=== PATIENT | male | born 1980 | race Caucasian/White ===

== ENCOUNTER 2023-08-31 01:43 | Day surgery (SDC) | payer OTHER, SELFPAY ==
[2023-08-31] VITALS (30 sets, daily range): BP systolic 101–175; BP diastolic 54–111; PULSE 60–85; RESP 16–18; TEMP 36.4–36.9; O2SAT 93–98; BMI 31.9
--- NOTE | 2023-08-31 02:26 | ED_ITS ---
HPI - General Adult General Chief complaint: Fall/Minor Trauma Stated complaint: Fell off a ladder on Friday, backpain Time Seen by Provider: 08/31/23 02:25 History of Present Illness HPI narrative: friday AM around 09 was on ladder in basement, up a couple steps - est 2 feet and ladder slipped out, pt fell and abdomen landed on window sill. pt states no other injuries but tonight started to worsen with onset of nausea . pt states pain from R upper abd into R flank region. 10/17. denies any urinary or BM concerns - states all normal. took ibu/tylenol mix medication around 2100. 43-year-old man presenting to the emergency department with concern of upper abdominal pain. Seems to go around his back somewhat. More so on the right. Yesterday was on a ladder and the ladder slipped and he dragged his abdomen and lower chest than across the window sill. Tonight started to have increasing pain along with nausea. This was in the upper right abdomen as noted. He has not had any fever. He describes this as a deep pain. Somewhat cramping; just hurts. Tried some acetaminophen and ibuprofen combination medication without relief. With later review he does admit that over the last week often after eating he has just been sensitive in this area. Mom apparently with gallbladder disease. Related Data Home Medications ?Medication ?Instructions ?Recorded ?Confirmed No Known Home Medications 08/31/23 08/31/23 Allergies Allergy/AdvReac Type Severity Reaction Status Date / Time No Known Drug Allergies Allergy Verified 08/31/23 01:56 Review of Systems Status of ROS: Reports: 6 or more systems reviewed and unremarkable except as noted in History and below [facility] Social History Smoking Status: Never smoker Do you use any of these nicotine containing products: None Non-prescribed substance use: denies use Exam Narrative: Exam Narrative: Pleasant. NAD. Right hand at upper abdomen. Skin is warm and dry. There is faint erythema in the area as mentioned but is not a rash. More as if he has been worrying this area. No actual flank pain. Normal bowel sounds. Abdomen is soft. Is somewhat difficult to reproduce his pain. Mild discomfort underneath the right ribs and at the rib edge. Negative Davis's. Lungs are clear. Heart in regular rate and rhythm. No other evidence of injury on his person. Back is without tenderness. Const: Vital Signs, click to edit/add: Vital Signs - 24 hr 08/31/23 01:53 08/31/23 03:51 08/31/23 04:02 Temperature 97.9 F Pulse Rate 76 Pulse Rate [Pulse Oximeter] 74 76 Respiratory Rate 16 16 16 Blood Pressure 171/101 H Blood Pressure [Le ft Upper Arm] 173/101 H 175/111 H Pulse Oximetry 97 97 96 Oxygen Delivery Me thod Room Air Room Air 08/31/23 05:00 08/31/23 05:02 08/31/23 05:03 Temperature Pulse Rate 70 68 80 Pulse Rate [Pulse Oximeter] Respiratory Rate 16 Blood Pressure 170/103 H Blood Pressure [Le ft Upper Arm] Pulse Oximetry 96 96 95 Oxygen Delivery Me thod 08/31/23 05:16 08/31/23 05:30 08/31/23 05:45 Temperature Pulse Rate 77 66 63 Pulse Rate [Pulse Oximeter] Respiratory Rate Blood Pressure Blood Pressure [Le ft Upper Arm] Pulse Oximetry 97 94 93 Oxygen Delivery Me thod 08/31/23 06:00 08/31/23 06:15 08/31/23 06:30 Temperature Pulse Rate 61 69 66 Pulse Rate [Pulse Oximeter] Respiratory Rate 16 Blood Pressure Blood Pressure [Le ft Upper Arm] Pulse Oximetry 94 95 95 Oxygen Delivery Me thod 08/31/23 07:10 Temperature Pulse Rate Pulse Rate [Pulse Oximeter] 69 Respiratory Rate 18 Blood Pressure Blood Pressure [Le ft Upper Arm] 144/88 H Pulse Oximetry 97 Oxygen Delivery Me thod Room Air Documenting provider has reviewed patient's vital signs: yes Course Vital Signs Vital signs: Initial Vital Signs Temperature 97.9 F 08/31/23 01:53 Temperature Source Temporal Artery Scan 08/31/23 01:53 Pulse Rate 74 08/31/23 01:53 Respiratory Rate 16 08/31/23 01:53 Blood Pressure 173/101 H 08/31/23 01:53 Blood Pressure Mean 125 H 08/31/23 01:53 Blood Pressure Position Sitting 08/31/23 01:53 Pulse Oximetry 97 08/31/23 01:53 Oxygen Delivery Method Room Air 08/31/23 01:53 Vital Signs Temperature 97.9 F 08/31/23 01:53 Pulse Rate 74 08/31/23 01:53 Respiratory Rate 16 08/31/23 01:53 Blood Pressure 173/101 H 08/31/23 01:53 Pulse Oximetry 97 08/31/23 01:53 Oxygen Delivery Method Room Air 08/31/23 01:53 Temperature 97.9 F 08/31/23 01:53 Pulse Rate 69 08/31/23 07:10 Respiratory Rate 18 08/31/23 07:10 Blood Pressure 144/88 H 08/31/23 07:10 Pulse Oximetry 97 08/31/23 07:10 Oxygen Delivery Method Room Air 08/31/23 07:10 Medications Administered Medications: Discontinued Medications Generic Name Dose Route Start Last Admin Trade Name Freq PRN Reason Stop Dose Admin Hydromorphone HCl 0.5 mg 08/31/23 05:22 08/31/23 05:24 Hydromorphone 0.5 Mg/0.5 Ml Inj IVP 08/31/23 05:23 0.5 mg ONCE ONE Administration Hydromorphone HCl 0.5 mg 08/31/23 07:56 08/31/23 08:02 Hydromorphone 0.5 Mg/0.5 Ml Inj IVP 08/31/23 07:57 0.5 mg ONCE ONE Administration Sodium Chloride 1,000 mls @ 1,000 mls/hr 08/31/23 02:32 08/31/23 04:10 0.9 % Sodium Chloride 1000 Ml IV 08/31/23 03:31 Infused .Q1H ONE Infusion Ketorolac Tromethamine 30 mg 08/31/23 03:28 08/31/23 03:56 Ketorolac 30 Mg/Ml Inj IVP 08/31/23 03:29 30 mg ONCE ONE Administration Morphine Sulfate 4 mg 08/31/23 03:32 08/31/23 03:56 Morphine 4 Mg/Ml Inj IVP 08/31/23 03:33 4 mg ONCE ONE Administration Ondansetron HCl 4 mg 08/31/23 03:28 08/31/23 03:56 Ondansetron 2 Mg/Ml Inj IVP 08/31/23 03:29 4 mg ONCE ONE Administration Medical Decision Making MDM Narrative Medical decision making narrative: I would be reassured if I could more clearly reproduces pain that this might be musculoskeletal. Not a particularly intense mechanism of injury in 36 hours ago or so for intra-abdominal/visceral injury but perhaps needs to be evaluated in this regard. Unusual delay to symptom escalation if related to trauma. Does not seem to have bowel issues otherwise at this time though does later note that has over the last week or so been experiencing regularly loose stools. Will place IV. IV contrasted scan looking for other evidence of injury. Does not initially want any medication for pain or nausea but later thinks better of this. Given ketorolac and Zofran and little morphine. Normal saline as well. CT scan of abdomen and pelvis by my read does show somewhat dilated gallbladder. There is some haziness suggesting inflammatory changes around the gallbladder and possibly some debris within the gallbladder. Radiology over-read as below Technique: CT through the abdomen and pelvis following 116 mL Isovue 370 IV contrast Comparison: None Findings: Lower chest: No acute abnormality appreciated. Hepatobiliary: Mild dilation of the gallbladder lumen with wall thickening and adjacent stranding and fluid. Spleen: Unremarkable. Pancreas: No acute abnormality appreciated. Adrenal glands: No acute abnormality appreciated. Kidneys: No significant parenchymal abnormality appreciated. No visualized calculi. No hydronephrosis. Bowel: No obstruction. No focal perienteric or pericolonic stranding is appreciated. The appendix is visualized and appears unremarkable. Vascular: No acute abnormality appreciated. Lymph nodes: No gross lymphadenopathy. Peritoneum: No free air. No free fluid. : No acute abnormality appreciated. Soft tissues: No acute abnormality appreciated. Bones: No acute fracture. No lytic or blastic lesion. Impression: Findings suspicious for acute cholecystitis. The pain returns again is ordered for some Dilaudid. At this time of night I would like to defer calling in the inspecting and testing lead hand. I think we can wait till morning to reassess. Labs have finalized now and he is without elevated transaminases and with normal white count. Veterinary Receptionist arrives and they do note some gallbladder wall thickening and sludge and a 2.4 cm stone in the gallbladder neck in maximal dimension TECHNIQUE: Ultrasound abdomen limited. Sonographic images gallbladder and biliary tree were obtained using miller-scale and color Doppler images. COMPARISON: CT abdomen and pelvis 08/31/2023 FINDINGS: Ultrasound was performed of the gallbladder. There is borderline distention of the gallbladder with a gallstone at the gallbladder neck. There is gallbladder wall thickening measuring up to 6 mm. No pericholecystic fluid is visualized. The common bile duct is not visualized due to overlying bowel gas IMPRESSION: Cholelithiasis with borderline gallbladder distention and gallbladder wall thickening, findings suggestive of acute cholecystitis. Following ultrasound does require re-dosing of pain medication as pain is escalating again. Reexamination of the abdomen later, does appear generally more tender but still with absent Davis's. I did review this case with General surgery on-call. They are anticipating taking Mr. Brown to surgery yet this morning. Lab Data Lab results reviewed: Yes I reviewed the patient's lab results Labs: Lab Results 08/31/23 08/31/23 08/31/23 Range/Units 02:27 03:20 07:25 WBC 10.99 (4.50-11.00) K/uL RBC 5.60 (4.30-5.90) m/uL Hgb 15.8 (13.5-17.5) gm/dL Hct 47.3 (37.0-53.0) % MCV 85 (80-100) fL MCH 28 (26-34) pg MCHC 33 (32-36) gm/dL RDW Coeff of Mady 13.3 (11.5-15.5) % Plt Count 204 (140-440) K/uL Neut % (Auto) 79.3 H (42.0-72.0) % Lymph % (Auto) 13.7 L (20-44) % [place] % (Auto) 5.2 (0.0-11.0) % Eos % (Auto) 1.4 (0.0-7.0) % Baso % (Auto) 0.3 (0.0-3.0) % Neut # (Auto) 8.70 H (1.7-7.0) K/uL Lymph # (Auto) 1.50 (0.90-2.90) K/uL [place] # (Auto) 0.60 (0.00-0.90) K/UL Eos # (Auto) 0.15 (0.00-0.50) K/uL Baso # (Auto) 0.03 (0.00-0.30) K/uL Abs Immat Gran (auto) 0.01 (0.00-0.30) K/uL Imm/Tot Granulo (auto) 0.1 % Sodium 138 (135-149) mmol/L Potassium 3.6 (3.6-5.1) mmol/L Chloride 103 (96-114) mmol/L Carbon Dioxide 29 (20-32) mmol/L Anion Gap 6 L (7-15) mEq/L BUN 15 (5-24) mg/dL Creatinine 0.9 (0.5-1.5) mg/dL Estimated Creat Clear 113.77 Estimated GFR 107 ml/min Glucose 110 (60-115) mg/dL Calcium 8.9 (8.4-10.6) mg/dL Total Bilirubin 0.7 (0.1-1.5) mg/dL Direct Bilirubin 0.3 (0.0-0.5) mg/dL AST 28 (12-35) U/L ALT 33 (4-50) U/L Alkaline Phosphatase 45 (40-150) U/L Total Protein 7.1 (6.0-8.3) g/dL Albumin 4.4 (3.3-5.0) g/dL Urine Color Yellow (Yellow) Urine Appearance Clear (Clear) Urine pH 7.5 (5.0-8.5) Ur Specific [place] 1.015 (1.000-1.030) Urine Protein Negative (Negative) Urine Glucose (UA) Negative (Negative) Urine Ketones Trace A (Negative) Urine Blood Negative (Negative) Urine Nitrite Negative (Negative) Urine Bilirubin Negative (Negative) Urine Urobilinogen 0.2 (0.2-1.0) Ur Leukocyte Esterase Negative (Negative) Urine RBC 0-2 (0-2) Urine WBC 0-2 (0-5) Urine WBC Clumps None (None) Ur Squamous Epith Cells None (None-Few) Urine Bacteria None (None) Lab Acknowledgement Test Added Discharge Plan Discharge Clinical Impression: Acute cholecystitis Patient Disposition: XFER to OR Condition: Stable Follow Up/Referrals: Agapito Ignacio MD [Referring] -
--- NOTE | 2023-08-31 02:33 | CRLHL7_ITS ---
For Patients: As a result of the Century Cures Act, medical imaging exams and procedure reports are released immediately into your electronic medical record. You may view this report before your referring provider. If you have questions, please contact your health care provider. Indication: Right upper quadrant pain after trauma Technique: CT through the abdomen and pelvis following 116 mL Isovue 370 IV contrast Comparison: None Findings: Lower chest: No acute abnormality appreciated. Hepatobiliary: Mild dilation of the gallbladder lumen with wall thickening and adjacent stranding and fluid. Spleen: Unremarkable. Pancreas: No acute abnormality appreciated. Adrenal glands: No acute abnormality appreciated. Kidneys: No significant parenchymal abnormality appreciated. No visualized calculi. No hydronephrosis. Bowel: No obstruction. No focal perienteric or pericolonic stranding is appreciated. The appendix is visualized and appears unremarkable. Vascular: No acute abnormality appreciated. Lymph nodes: No gross lymphadenopathy. Peritoneum: No free air. No free fluid. : No acute abnormality appreciated. Soft tissues: No acute abnormality appreciated. Bones: No acute fracture. No lytic or blastic lesion. Impression: Findings suspicious for acute cholecystitis. Please note that all CT scans at this facility use dose modulation, iterative reconstruction, and/or weight-based dosing when appropriate to reduce radiation dose to as low as reasonably achievable. Dictated by Slim De Santiago MD @ 08/31/2023 3:16:10 AM (Electronically Signed)
[2023-08-31] MEDS: 0.9 % SODIUM CHLORIDE 1000 ml 1,000 ML IV (02:43)
[2023-08-31 03:05] LABS: Hemoglobin* 15.8 gm/dL (13.5-17.5)
[2023-08-31 03:28] LABS: Albumin* 4.4 g/dL (3.3-5.0)
[2023-08-31 03:29] LABS: Chloride* 103 mmol/L (96-114); Potassium* 3.6 mmol/L (3.6-5.1); Sodium* 138 mmol/L (135-149)
[2023-08-31 03:31] LABS: Anion Gap 6 mEq/L (7-15); Bilirubin Direct* 0.3 mg/dL (0.0-0.5); Bilirubin Total* 0.7 mg/dL (0.1-1.5); Carbon Dioxide* 29 mmol/L (20-32); Creatinine* 0.9 mg/dL (0.5-1.5); Est. Creatinine Clearance* 113.77; Estimated Glomerular Filt Rate 107 ml/min
[2023-08-31 03:32] LABS: Alanine Aminotransferase* 33 U/L (4-50); Alkaline Phosphatase* 45 U/L (40-150); Aspartate Amino Transferase* 28 U/L (12-35); Blood Urea Nitrogen* 15 mg/dL (5-24); Calcium* 8.9 mg/dL (8.4-10.6); Glucose* 110 mg/dL (60-115); Total Protein* 7.1 g/dL (6.0-8.3)
[2023-08-31 03:36] LABS: Appearance Urine Clear (Clear); Bilirubin Urine Negative (Negative); Blood Urine Negative (Negative); Color Urine Yellow (Yellow); Glucose Urine Negative (Negative); Ketones Urine Trace (Negative); Leukocyte Esterase Urine Negative (Negative); Nitrite Urine Negative (Negative); Protein Urine Negative (Negative); Specific Gravity Urine 1.015 (1.000-1.030); Urobilinogen Urine 0.2 (0.2-1.0); pH Urine 7.5 (5.0-8.5)
[2023-08-31 03:52] LABS: RBC Urine 0-2 (0-2); WBC Urine 0-2 (0-5)
[2023-08-31] MEDS: KETOROLAC 30 MG/ML inj IVP (03:56)
[2023-08-31] MEDS: ONDANSETRON 2 MG/ML inj 4 MG IVP (03:56)
[2023-08-31] MEDS: MORPHINE 4 MG/ML INJ IVP (03:56)
[2023-08-31] MEDS: HYDROmorphone 0.5 mg/0.5 ml inj IVP ×2 (05:24→08:02)
--- NOTE | 2023-08-31 06:55 | CRLHL7_ITS ---
For Patients: As a result of the Century Cures Act, medical imaging exams and procedure reports are released immediately into your electronic medical record. You may view this report before your referring provider. If you have questions, please contact your health care provider. INDICATION: Right upper quadrant pain, CT demonstrating possible cholecystitis. TECHNIQUE: Ultrasound abdomen limited. Sonographic images gallbladder and biliary tree were obtained using miller-scale and color Doppler images. COMPARISON: CT abdomen and pelvis 08/31/2023 FINDINGS: Ultrasound was performed of the gallbladder. There is borderline distention of the gallbladder with a gallstone at the gallbladder neck. There is gallbladder wall thickening measuring up to 6 mm. No pericholecystic fluid is visualized. The common bile duct is not visualized due to overlying bowel gas IMPRESSION: Cholelithiasis with borderline gallbladder distention and gallbladder wall thickening, findings suggestive of acute cholecystitis. Dictated by Roselia Morgan MD @ 08/31/2023 8:30:24 AM Dictated by: Roselia Morgan MD @ 08/31/2023 08:30:48 (Electronically Signed)
[2023-08-31 07:40] LABS: Basophils Absolute Auto 0.03 K/uL (0.00-0.30); Basophils Percent Auto 0.3 % (0.0-3.0); Eosinophils Absolute Auto 0.15 K/uL (0.00-0.50); Eosinophils Percent Auto 1.4 % (0.0-7.0); Hematocrit 47.3 % (37.0-53.0); Immature Granulocytes Abs Auto 0.01 K/uL (0.00-0.30); Immature Granulocytes Pct Auto 0.1 %; Lymphocytes Percent Auto 13.7 % (20-44); Mean Corpuscular HGB Conc 33 gm/dL (32-36); Mean Corpuscular Hemoglobin 28 pg (26-34); Mean Corpuscular Volume 85 fL (80-100); Monocytes Percent Auto 5.2 % (0.0-11.0); Neutrophils Percent Auto 79.3 % (42.0-72.0); Platelet Count* 204 K/uL (140-440); RDW Coefficient of Variation % 13.3 % (11.5-15.5); White Blood Count* 10.99 K/uL (4.50-11.00)
[2023-08-31 07:47] LABS: Slide Review Reflex No
--- NOTE | 2023-08-31 10:11 | ED.NURSE ---
Patient to OR via PLACEMENT COORDINATOR (Marcelina) via cot.
[2023-08-31] MEDS: LACTATED RINGERS 1000 ML 1,000 ML 100 ML IV (10:13)
--- NOTE | 2023-08-31 10:17 | P.GSHP_ITS ---
History of Present Illness History of Present Illness Date Seen: 08/31/23 Chief complaint: Fell off a ladder on Friday, backpain Narrative: Alvin Busby is a 43 year old male who presented with right upper quadrant abdominal pain. The pain started yesterday afternoon. It progressively got worse throughout the day. By that evening he was 10/10 in pain and he came to the emergency department. He has never had pain like this before. The pain radiates to his back. Initially he thought that it was related to a fall he had on Friday, although he denies having any pain in his abdomen or on his side after the fall or Friday morning. He has been having diarrhea for the last 4 weeks. Last night he had some nausea and vomiting. He last ate yesterday at 4:00 p.m.. He had some sweet and sour soup with beef and rice. He has never had abdominal surgery before. He is otherwise healthy. He works as a crm dynamics developer. Review of Systems Status of ROS: Reports: 10 or more systems reviewed and unremarkable except as noted in History and below [facility] Social History Smoking Status: Never smoker Do you use any of these nicotine containing products: None Non-prescribed substance use: denies use Meds Home Medications and Allergies Home Medications ?Medication ?Instructions ?Recorded ?Confirmed ?Type No Known Home Medications 08/31/23 08/31/23 History Allergies Allergy/AdvReac Type Severity Reaction Status Date / Time No Known Drug Allergies Allergy Verified 08/31/23 01:56 Exam Narrative: Exam Narrative: General: Alert and oriented, no acute distress Respiratory: Clear breath sounds bilaterally, maintained on room air CV: Well perfused Abdomen: Soft, tender to palpation right upper quadrant with some guarding. Chest: No chest wall tenderness. No rib tenderness. No bruising of the ribs noticed. Const: Vital Signs, click to edit/add: Vital Signs - 24 hr 08/31/23 01:53 08/31/23 03:51 08/31/23 04:02 Temperature 97.9 F Pulse Rate 76 Pulse Rate [Pulse Oximeter] 74 76 Respiratory Rate 16 16 16 Blood Pressure 171/101 H Blood Pressure [Le ft Upper Arm] 173/101 H 175/111 H Pulse Oximetry 97 97 96 Oxygen Delivery Me thod Room Air Room Air 08/31/23 05:00 08/31/23 05:02 08/31/23 05:03 Temperature Pulse Rate 70 68 80 Pulse Rate [Pulse Oximeter] Respiratory Rate 16 Blood Pressure 170/103 H Blood Pressure [Le ft Upper Arm] Pulse Oximetry 96 96 95 Oxygen Delivery Me thod 08/31/23 05:16 08/31/23 05:30 08/31/23 05:45 Temperature Pulse Rate 77 66 63 Pulse Rate [Pulse Oximeter] Respiratory Rate Blood Pressure Blood Pressure [Le ft Upper Arm] Pulse Oximetry 97 94 93 Oxygen Delivery Me thod 08/31/23 06:00 08/31/23 06:15 08/31/23 06:30 Temperature Pulse Rate 61 69 66 Pulse Rate [Pulse Oximeter] Respiratory Rate 16 Blood Pressure Blood Pressure [Le ft Upper Arm] Pulse Oximetry 94 95 95 Oxygen Delivery Az thod 08/31/23 07:10 08/31/23 09:15 Temperature 97.9 F Pulse Rate Pulse Rate [Pulse Oximeter] 69 77 Respiratory Rate 18 18 Blood Pressure Blood Pressure [Le ft Upper Arm] 144/88 H 150/96 H Pulse Oximetry 97 97 Oxygen Delivery Az thod Room Air Room Air Results Results Labs: No leukocytosis, there is a left shift. LFTs within normal limits. Abdomen CT scan report/results: report reviewed and image reviewed CT scan - chest: report reviewed and image reviewed Abdominal ultrasound report/results: report reviewed and image reviewed Progress Note:A&P Assessment and plan (1) Acute cholecystitis: Status: Acute Assessment and Plan: Patient is a 43-year-old male who presented to the emergency department with right upper quadrant abdominal pain radiating to his back. Initially, was thought to be secondary to trauma. Clinical workup and history is more consistent with acute cholecystitis. LFTs are within normal limits, making choledocholithiasis less likely. CT scan and ultrasound imaging reviewed. There is evidence of a large gallstone stuck within the neck of the gallbladder and gallbladder wall thickening. I had a detailed conversation with the patient regarding the diagnosis of acute cholecystitis. We discussed the treatment options including observation with diet modification and laparoscopic cholecystectomy. We discussed the risks of surgery (including but not limited to) the risks of bleeding, infection, injury to other structures in the abdomen including bile duct injury, bile leak and conversion to an open operation. We discussed the possibility that the patient's pain not improve with surgery. We discussed the possibility of permanent post-operative diarrhea that may require medical management. Additionally, the conceivably of complications requiring additional surgery or further hospitalization were also discussed including the risks of [place], respiratory failure, stroke and blood clots. The patient voiced an understan ding of our conversation, had the opportunity to ask questions, agreed to accept the risks of surgery and asked that we proceed with surgery. Plan OR for laparoscopic cholecystectomy.
[2023-08-31] MEDS: PIPERACILLIN/TAZOBACTAM 3.375 GM INJ IVPB (10:21)
[2023-08-31] MEDS: BUPIVACAINE 0.5% 30 ML INJECTION (10:48)
--- NOTE | 2023-08-31 12:02 | PM.GSPRC ---
Operative Note Date of procedure: 08/31/23 Pre-op diagnosis: Acute cholecystitis Post-op diagnosis: Same Type of Procedure: Laparoscopic cholecystectomy Indications: Patient is a 43-year-old male who presented to the emergency department with clinical history and workup consistent for acute cholecystitis. Risks and benefits of operative intervention were discussed at length with the patient. Risks included but was not limited to: Bleeding, infection, risk of damage to surrounding structures, possible need for additional procedures, possible need to convert to an open operation and postoperative complications such as pneumonia, pulmonary emboli or [place]. All questions and concerns were addressed with the patient agreeing to proceed. Procedure Description: After discussing the risks and benefits of the procedure, the patient signed informed consent.? The operative site was marked and the patient was brought to the operating room and placed on the operating table in supine position.? Care was taken to pad the patient's pressure points.?? The patient was then intubated by anesthesia.?? The operative site was then prepped and draped in the usual sterile fashion.? A time-out was then performed. Entrance to the abdomen was gained via a 5 mm Visiport in the left upper quadrant. The abdomen was insufflated and briefly surveyed for signs of injury. There was none. 11 mm umbilical port was placed as well as 2 working ports along the right costal margin. Patient was then placed in reverse Trendelenburg position with the right side up. The gallbladder was distended, edematous and difficult to grasp. A laparoscopic needle was used to decompress the gallbladder with removal of approximately 60 mL clear fluid, consistent with hydrops of the gallbladder. The fundus was grasped and retracted cephalad. A small amount of dissection was needed to free omental adhesions from the gallbladder. The infundibulum was grasped. A combination of hook cautery and blunt dissection was used to carefully dissect out the cystic duct and artery until they could clearly be seen entering the gallbladder without any intervening structures. The gallbladder was dissected off the cystic plate to achieve the critical view. The cystic artery was identified with evidence of a distal bifurcation. Additional clips were placed on the branch, before it was transected. The cystic duct was identified with 2 clips proximally and 1 clip distally and transected with the scissors. The gallbladder was then taken off of the liver bed and removed from the abdomen using an Endo-Catch bag. The gallbladder bed was surveyed for hemostasis, with any bleeding controlled with cautery. A small amount of bile which had spilled was suctioned from the abdomen. The ports were then removed under direct vision. The umbilical port fascia was closed with 0 Vicryl via a [id number] stitch. The skin was closed with absorbable subcuticular suture. Sterile dressings were then applied. Instrument sponge and needle counts were correct at the end of the case. The patient was then woken and transferred to the PACU in stable condition. Findings: Hydrops of the gallbladder. Anesthesia: GETA Surgeon: Nieves Champion MD Estimated blood loss (mL): 5 Specimen: Gallbladder Condition: stable Disposition: PACU
--- NOTE | 2023-08-31 12:22 | P.ANES_ITS ---
Anesthesia Charges Start Date/Time Anesthesia Start Date: 08/31/23 Anesthesia Start Time: 10:13 Stop Date/Time Anesthesia Stop Date: 08/31/23 Anesthesia Stop Time: 12:14 Summary Emergency: MANUFACTURING ACCOUNTANT
--- NOTE | 2023-08-31 12:30 | SUR.PHASEI ---
Patient meets Anesthesia PACU discharge criteria
[2023-08-31] MEDS: HYDROCODONE-ACETAMIN 5-325 MG 1 TAB PO (16:15)
--- NOTE | 2023-08-31 17:09 | PC.NURSE ---
PATIENT RETURNED FROM SURGERY AT 1300 IN OWN BED. DROWSY BUT DENIES PAIN OR N/V. LAP SITES x4 WITH STERI-STRIPS IN PLACE WITH SCANT AMOUNT DRAINAGE. REINFORCED WITH BANDAIDS. PATIENT AMBULATED IN HALLWAY AND TOLERATED JELLO AND JUICE. RECEIVED NORCO FOR MILD PAIN AND TAKEN WITH CRACKERS. SALINE LOCK DC'D. REVIEWED DC INSTRUCTIONS WITH PATIENT AND AND PATIENT DC'D HOME WITH .
== END 2023-08-31 16:28 | disposition home or self-care (01) ==
LOC: ED 09:46 → SS 10:16 → MEDSURG 13:53
PROVIDERS: Emergency Provider Family Medicine; Visit Provider Surgery
PROC: 0FT44ZZ Resection of Gallbladder, Percutaneous Endoscopic Approach (ICD-10-PCS; CPT 47562; principal; 2023-08-31 10:00)
DX: K80.00 Calculus of gallbladder with acute cholecystitis without obstruction (principal); K82.1 Hydrops of gallbladder; R10.11 Right upper quadrant pain; W11.XXXA Fall on and from ladder, initial encounter
CPT/HCPCS: 47562; 00790; 36415; 74177; 76705; 80048; 80076; 81001; 85018; 85025; 88304; 99140; 99284; 99285; A9270; J0330; J0665; J1100; J1170; J1885; J2250; J2270; J2371; J2405; J2543; J2704; J2710; J3010; J7030; J7120; Q9967